=== PATIENT | female | born 1960 | race Caucasian/White ===

== ENCOUNTER 2017-11-21 23:49 | Emergency (ER) | payer BC ==
[~2017-11-21] VITALS: Ht 175.3 cm; Wt 68.2 kg
[2017-11-21 23:57] VITALS: TEMP 97
[2017-11-22] MEDS ORDERED: LAMICTAL200 MG PO (01:24)
[2017-11-22] MEDS ORDERED: SYNTHROID0.088 MG/T PO (01:24)
[2017-11-22] MEDS ORDERED: VYVANSE50 MG PO (01:25)
[2017-11-22] MEDS ORDERED: DESYREL DIVIDO150 M1 PO (01:25)
[2017-11-22] MEDS ORDERED: XANAX 1MG1 MG PO (01:25)
[2017-11-22] MEDS ORDERED: EFFEXOR XR75 MG/CAP PO (01:25)
[2017-11-22 02:10] VITALS: BP 105/68; PULSE 85
== END 2017-11-22 02:13 | disposition home or self-care (01) ==
LOC: COL.ER 23:49
DX: G43.909 Migraine, unspecified, not intractable, without status migrainosus (principal); F17.210 Nicotine dependence, cigarettes, uncomplicated
CPT/HCPCS: J1200; J1885; J2765

== ENCOUNTER 2018-11-14 21:53 | Emergency (ER) | payer BC ==
[~2018-11-14] VITALS: Ht 175.3 cm; Wt 74.5 kg
[~2018-11-14 21:53] MED LIST: DESYREL DIVIDO150 M1 PO; EFFEXOR XR75 MG/CAP PO; LAMICTAL200 MG PO; SYNTHROID0.088 MG/T PO; VYVANSE50 MG PO; XANAX 1MG1 MG PO
[2018-11-14 22:05] VITALS: BP 130/67; TEMP 98
[2018-11-14] MEDS ORDERED: SYNTHROID0.112 MG/T PO (22:28)
[2018-11-14] MEDS ORDERED: MACROBID 1100 MG/CAP PO (22:29)
[2018-11-15] MEDS ORDERED: FLEXERIL 1010 MG/TAB PO (00:02)
[2018-11-15] MEDS ORDERED: NORCO 325 MG-51 TAB PO (00:02)
[2018-11-15 00:26] VITALS: PULSE 78
== END 2018-11-15 00:26 | disposition home or self-care (01) ==
LOC: COL.ER 21:53
DX: S22.31XA Fracture of one rib, right side, initial encounter for closed fracture (principal); G43.909 Migraine, unspecified, not intractable, without status migrainosus; F41.9 Anxiety disorder, unspecified; F32.9 Major depressive disorder, single episode, unspecified; G47.00 Insomnia, unspecified; E03.9 Hypothyroidism, unspecified; F17.210 Nicotine dependence, cigarettes, uncomplicated; F10.10 Alcohol abuse, uncomplicated; Z90.49 Acquired absence of other specified parts of digestive tract; Z90.710 Acquired absence of both cervix and uterus; Z88.2 Allergy status to sulfonamides; Z88.5 Allergy status to narcotic agent; W08.XXXA Fall from other furniture, initial encounter; Y93.41 Activity, dancing
CPT/HCPCS: J1885

== ENCOUNTER 2020-08-24 20:21 | Emergency (ER) | payer BC ==
[~2020-08-24] VITALS: Ht 172.7 cm; Wt 81.8 kg
[~2020-08-24 20:21] MED LIST changes: +FLEXERIL 1010 MG/TAB PO; +MACROBID 1100 MG/CAP PO; +NORCO 325 MG-51 TAB PO; +SYNTHROID0.112 MG/T PO
[2020-08-24 20:23] VITALS: BP 123/86; TEMP 96.5
[2020-08-24] MEDS ORDERED: NORCO 325 MG-51 TAB PO (21:53)
[2020-08-24 22:05] VITALS: PULSE 74
== END 2020-08-24 22:04 | disposition home or self-care (01) ==
LOC: COL.ER 20:21
DX: S32.511A Fracture of superior rim of right pubis, initial encounter for closed fracture (principal); S32.591A Other specified fracture of right pubis, initial encounter for closed fracture; S09.90XA Unspecified injury of head, initial encounter; S00.11XA Contusion of right eyelid and periocular area, initial encounter; F31.9 Bipolar disorder, unspecified; E03.9 Hypothyroidism, unspecified; F17.210 Nicotine dependence, cigarettes, uncomplicated; Z88.2 Allergy status to sulfonamides; Z90.710 Acquired absence of both cervix and uterus; Z88.6 Allergy status to analgesic agent; Z79.890 Hormone replacement therapy; W01.0XXA Fall on same level from slipping, tripping and stumbling without subsequent striking against object, initial encounter
CPT/HCPCS: J3010

== ENCOUNTER 2020-09-20 15:08 | Emergency (ER) | payer OTHER ==
[~2020-09-20] VITALS: Ht 175.3 cm; Wt 84.1 kg
[2020-09-20 16:04] VITALS: TEMP 97.7
[2020-09-20 16:13] VITALS: BP 119/75; PULSE 83
== END 2020-09-20 16:13 | disposition home or self-care (01) ==
LOC: COL.ER 15:08
DX: I47.1 Supraventricular tachycardia (principal); F17.210 Nicotine dependence, cigarettes, uncomplicated; Z88.2 Allergy status to sulfonamides; Z88.6 Allergy status to analgesic agent
CPT/HCPCS: J0153; J7030

== ENCOUNTER 2021-05-13 12:37 | Emergency (ER) | payer OTHER ==
[~2021-05-13] VITALS: Ht 175.3 cm; Wt 90.9 kg
[2021-05-13 12:41] VITALS: BP 112/56; PULSE 78; TEMP 98.3
[2021-05-13] MEDS ORDERED: NORCO 325 MG-51 TAB PO (16:16)
== END 2021-05-13 17:00 | disposition home or self-care (01) ==
LOC: COL.ER 12:37
DX: S42.035A Nondisplaced fracture of lateral end of left clavicle, initial encounter for closed fracture (principal); S32.502A Unspecified fracture of left pubis, initial encounter for closed fracture; I47.1 Supraventricular tachycardia; E03.9 Hypothyroidism, unspecified; F41.9 Anxiety disorder, unspecified; Z79.899 Other long term (current) drug therapy; Z79.890 Hormone replacement therapy; F17.210 Nicotine dependence, cigarettes, uncomplicated; W10.9XXA Fall (on) (from) unspecified stairs and steps, initial encounter; Y92.009 Unspecified place in unspecified non-institutional (private) residence as the place of occurrence of the external cause
CPT/HCPCS: J1885

== ENCOUNTER 2021-07-19 10:21 | Emergency (ER) | payer OTHER ==
[~2021-07-19] VITALS: Ht 175.3 cm; Wt 86.8 kg
[2021-07-19 10:30] VITALS: TEMP 98
[2021-07-19 10:43] LABS: BASO # 0.1 K/mm3 (0.0-0.2); BASO % 0.8 % (0.0-2.0); EOS # 0.2 K/mm3 (0.0-0.7); EOS % 1.7 % (0.0-4.0); GRAN # 8.2 K/mm3 (1.4-6.5); GRAN % 62.2 % (42.2-75.2); HEMATOCRIT 32.8 % (37.0-47.0); HEMOGLOBIN 10.1 g/dl (12.5-16.0); LYMPH # 3.2 K/mm3 (1.2-3.4); LYMPH % 24.4 % (20.0-51.0); MEAN CELL VOLUME 81 fl (80.0-100.0); MEAN CORPUSCULAR HEMOGLOBIN 25 pg (27-31); MEAN CORPUSCULAR HGB CONC 31 g/dl (33.0-37.0); MONO # 1.4 K/mm3 (0.1-0.6); MONO % 10.6 % (1.7-9.3); PLATELET COUNT 749 K/mm3 (130-400); RED BLOOD COUNT 4.04 M/mm3 (4.10-5.30); REDCELL DISTRIBUTION WIDTH-CV 17.1 % (11.5-14.5)
[2021-07-19 10:56] LABS: ALBUMIN 3.6 gm/dL (3.4-4.8); BILIRUBIN,TOTAL 0.7 mg/dL (0.2-1.2); CALCIUM 8.6 mg/dL (8.4-10.2); CREATININE, serum 1.09 mg/dL (0.57-1.11); POTASSIUM 4.2 mmol/L (3.5-4.5); TOTAL PROTEIN 6.5 gm/dL (6.2-8.1)
[2021-07-19 11:01] LABS: TROPONIN-I 0.024 ng/mL (0.00-0.033)
[2021-07-19 12:42] VITALS: BP 109/72; PULSE 84
== END 2021-07-19 12:50 | disposition home or self-care (01) ==
LOC: COL.ER 10:21
PROVIDERS: Emergency Medicine
DX: I47.1 Supraventricular tachycardia (principal); R79.0 Abnormal level of blood mineral; F41.9 Anxiety disorder, unspecified; F31.9 Bipolar disorder, unspecified; F17.200 Nicotine dependence, unspecified, uncomplicated; Z79.899 Other long term (current) drug therapy
CPT/HCPCS: J0153

== ENCOUNTER → 2021-09-03 | Outpatient (CLI) | payer OTHER | LOC: MC.RAD 07-12 14:45 | DX: Z12.31 Encounter for screening mammogram for malignant neoplasm of breast (principal); Z01.419 Encounter for gynecological examination (general) (routine) without abnormal findings ==